=== PATIENT | male | born 1980 | race Hispanic/Latino ===

== ENCOUNTER 2017-08-20 08:21 | Emergency (ER) | payer OTHER ==
[2017-08-20] MEDS: TETRACAINE 0.5% OPHTH SOLN 4ML OS (09:00)
[2017-08-20] MEDS: FLUORESCEIN OPHTH 1 MG STRIP OS (09:00)
[2017-08-20] MEDS: ERYTHROMYCIN OPHTH OINT OS (09:15)
== END 2017-08-20 09:23 | disposition home or self-care (01) ==
LOC: M ED 08:21
DX: S05.02XA Injury of conjunctiva and corneal abrasion without foreign body, left eye, initial encounter (principal); X58.XXXA Exposure to other specified factors, initial encounter; Y92.89 Other specified places as the place of occurrence of the external cause
CPT/HCPCS: 99283